=== PATIENT | male | born 1970 | race Caucasian/White ===

== ENCOUNTER → 2019-11-21 13:54 | Outpatient (CLI) | payer OTHER, SELFPAY ==
[2019-11-21 15:05] LABS: Amphetamine/Metha Screen,Urine Negative ng/mL (<1000); Barbiturates Screen,Urine Positive ng/mL (<200); Benzodiazepines Screen,Urine Negative ng/mL (<200); Cannabinoid Screen,Urine Negative ng/mL (<50); Cocaine Screen,Urine Negative ng/mL (<300); Methadone Screen,Urine Negative ng/mL (<300); Opiate Screen,Urine Negative ng/mL (<300); Phencyclidine Screen,Urine Negative ng/mL (<25)
[2019-11-27 12:30] LABS: Barbiturates Positive (.)
== END ==
PROVIDERS: Visit Provider Nurse Practitioner Family
DX: F10.20 Alcohol dependence, uncomplicated (principal); R89.2 Abnormal level of other drugs, medicaments and biological substances in specimens from other organs, systems and tissues
CPT/HCPCS: 80305; 80345

== ENCOUNTER → 2020-06-16 13:54 | Outpatient (CLI) | payer OTHER, SELFPAY ==
[2020-06-16 14:53] LABS: Benzodiazepines Screen,Urine Negative ng/ml (<200)
[2020-06-16 14:54] LABS: Amphetamine/Metha Screen,Urine Negative ng/ml (<1000); Barbiturates Screen,Urine Negative ng/ml (<200)
[2020-06-16 14:55] LABS: Methadone Screen,Urine Negative ng/ml (<300)
[2020-06-16 14:56] LABS: Cannabinoid Screen,Urine Negative ng/ml (<50); Cocaine Screen,Urine Negative ng/ml (<300)
[2020-06-16 14:57] LABS: Opiate Screen,Urine Negative ng/ml (<300); Phencyclidine Screen,Urine Negative ng/ml (<25)
== END ==
PROVIDERS: Visit Provider Nurse Practitioner Psychiatric/Mental Health
DX: Z02.83 Encounter for blood-alcohol and blood-drug test (principal)
CPT/HCPCS: 80305

== ENCOUNTER → 2020-06-25 15:37 | Outpatient (CLI) | payer OTHER, SELFPAY ==
[2020-06-27 09:42] LABS: Covid-19 Nasal PCR Sendout UK Not Detected
== END ==
PROVIDERS: PCP Nurse Practitioner Family; Visit Provider Nurse Practitioner Family
DX: Z03.818 Encounter for observation for suspected exposure to other biological agents ruled out (principal)
CPT/HCPCS: U0003

== ENCOUNTER 2020-08-17 13:45 | Emergency (ER) | payer OTHER, SELFPAY ==
[2020-08-17 14:16] VITALS: BP 152/108; PULSE 82; RESP 18; TEMP 36.9; O2SAT 97; BMI 36.1
--- NOTE | 2020-08-17 14:22 | HMH.EDUTC ---
[facility] [place] Clinical Impression: Strep throat Disposition: Home, Self-Care Condition on Discharge: Good Instructions: Strep Throat (Alternative Therapy), Strep Throat, DI for Strep Throat, Amoxicillin Additional Instructions: Strep throat *If you did not take Penicillin shot or was unable to, start taking antibiotic immediately and make sure that you take it for the FULL length of time although you should start to feel better in 24-48 hours *change toothbrush and toothpaste 24-48 hours after starting to take antibiotics so you do not reinfect yourself Monitor Temp. Tylenol and/or Ibuprofen as needed. ER if fever is no less than 101 despite alternating Tylenol and Ibuprofen * Encourage fluids, water, Gatorade, powerade, pedialyte if /toddler/or child *Cold fluids, popsicles and ice cream may feel good on his throat *Monitor Temp, Over the counter Motrin or Tylenol as directed/as needed Tylenol every 4 hours and Motrin every 6 hours (as long as your family doctor has told you that you can take it) for fever or pain. and straight to ER if unable to lower temp less than 101.0 after medication given *Warm salt water gargles may help to soothe the throat *Throat Lozenges *Warm fluids like tea with honey may help to soothe the throat *Sleep elevated *Humidifier/Vaporizer *Flonase 2 sprays in each nostril daily but be aware that it may take 2-3 days before you notice improvement Follow up IMMEDIATELY for new or worsening symptoms or no Noticeable improvement over the next 48-72 hours. 911 for difficulty breathing or swallowing Your blood pressure was elevated today in the [facility] make sure to follow up with Family Doctor for re-evaluation Prescriptions: Amoxicillin [Amoxicillin 500mg Cap] 500 mg PO BID 10 Days #20 cap Transmission Status: Received by [facility] Fluticasone Propionate [Flonase 50mcg nasal spray 16gm] 1 spr NS DAILY #1 bottle Transmission Status: Received by [facility] Referrals: Luis F Key APRN [Primary Care Provider] - As needed Time of Disposition: 14:42 Medical Decision Making - Kishore Inquiry Pt receiving controlled substance: No Kishore was queried for this patient: No Vital Signs: 08/17/20 14:16 08/17/20 14:54 Temperature 98.4 F 98.4 F Temperature Source Oral Pulse Rate 82 Pulse Rate [Right Brachial] 82 Respiratory Rate 18 18 Blood Pressure 131/93 H Blood Pressure [Right Arm] 152/108 H Blood Pressure Mean [Right Arm] 122 Blood Pressure Source [Right Arm] Automatic Cuff Blood Pressure Position [Right Arm] Sitting 02 Sat by Pulse Oximetry 97 Oxygen Delivery Method Room Air - Lab Data Lab results reviewed: Yes: I reviewed the patient's lab results. Lab Results 08/17/20 15:17: Influenza Type A Ag Negative, Influenza Type B Ag Negative 08/17/20 15:17: Strep Scn Rapid [facility] Positive [facility] [place] - General Stated complaint: mobley stuff head congestion Time Seen by Provider: 08/17/20 14:22 Mode of Arrival: Ambulatory Source of Information: Patient Limitations: No Limitations Description of Symptoms (Recalled from Triage Doc. by RN): PATIENT C/O FEVER, CONGESTION, OCCASIONAL COUGH WITH MUCOUS X 2 DAYS HEENT Symptoms (Recalled from RN notes): Yes Resp Symptoms (Recalled from RN notes): Yes Skin Symptoms (Recalled from RN notes): No MS Symptoms (Recalled from RN notes): No Functional Status (Recalled from RN notes): WNL - History of Present Illness Provider Complaint: Patient states that he hasnt been feeling well for a couple of days States that he has been having nasal congestion, body aches, chills, sore throat, nasal drainage and cough on and off which is worse when he lays down States that he has also had fever on and off States that he gets sinusitis and bronchitis around this time every year and wanted to come in early and get checked befor it got bad - Related Data Home Medications Medication Instructions Recorded Confirmed albuterol
[2020-08-17 14:54] VITALS: BP 131/93; PULSE 82; RESP 18; TEMP 36.9; O2SAT 97
[2020-08-17 15:20] LABS: UTC Influenza A Antigen Negative (Negative); UTC Influenza B Antigen Negative (Negative); UTC Strep Screen (Rapid) Positive (Negative)
== END 2020-08-17 15:00 | disposition home or self-care (01) ==
PROVIDERS: Emergency Provider Nurse Practitioner; PCP Nurse Practitioner Family
DX: J02.0 Streptococcal pharyngitis (principal); F17.210 Nicotine dependence, cigarettes, uncomplicated; F41.8 Other specified anxiety disorders; I10 Essential (primary) hypertension; Z79.899 Other long term (current) drug therapy; Z88.5 Allergy status to narcotic agent
CPT/HCPCS: 87804; 87880; 99202